=== PATIENT | male | born 1970 | race Caucasian/White ===

== ENCOUNTER 2023-03-27 04:12 | Day surgery (SDC) | payer OTHER ==
[2023-03-26 15:13] VITALS: BMI 31.3
[2023-03-27 11:10] VITALS: TEMP 98
[2023-03-27 11:51] VITALS: BP 123/86; PULSE 68; RESP 19
[2023-03-27 12:14] LABS: POTASSIUM 3.8 mmol/L (3.5-5.1)
[2023-03-27 12:15] LABS: CALCIUM 8.2 mg/dL (8.5-10.1)
[2023-03-27 12:16] LABS: BLOOD UREA NITROGEN 11.4 mg/dL (7-18); MAGNESIUM 2.2 mg/dL (1.8-2.4)
[2023-03-27 12:19] LABS: CREATININE 0.8 mg/dL (0.55-1.3)
== END 2023-03-27 12:22 | disposition home or self-care (01) ==
LOC: JASU-ENDO 04:12
PROVIDERS: ATTEND Internal Medicine Gastroenterology
PROC: 0DBL8ZX Excision of Transverse Colon, Via Natural or Artificial Opening Endoscopic, Diagnostic (ICD-10-PCS; 2023-03-27)
PROC: 0DBN8ZX Excision of Sigmoid Colon, Via Natural or Artificial Opening Endoscopic, Diagnostic (ICD-10-PCS; 2023-03-27)
PROC: 0DBH8ZX Excision of Cecum, Via Natural or Artificial Opening Endoscopic, Diagnostic (ICD-10-PCS; 2023-03-27)
PROC: 0DBK8ZX Excision of Ascending Colon, Via Natural or Artificial Opening Endoscopic, Diagnostic (ICD-10-PCS; principal; 2023-03-27 10:00)
DX: Z12.11 Encounter for screening for malignant neoplasm of colon (principal); K57.30 Diverticulosis of large intestine without perforation or abscess without bleeding; K64.8 Other hemorrhoids; D12.5 Benign neoplasm of sigmoid colon; D12.3 Benign neoplasm of transverse colon; D12.2 Benign neoplasm of ascending colon; D12.0 Benign neoplasm of cecum
CPT/HCPCS: 36415; 80048; 83735; 88305-TC

== ENCOUNTER 2023-07-15 14:02 | Emergency (ER) | payer OTHER ==
[2023-07-15] MEDS ORDERED: MECLIZINE HCL 25 MG TABLET (FP) PO ONE (14:20)
[2023-07-15 14:46] VITALS: TEMP 98.2; BMI 34.4
[2023-07-15] MEDS ORDERED: MECLIZINE HCL 25 MG TABLET (FP) ONE ×2 (15:11→20:08)
[2023-07-15] MEDS ORDERED: ONDANSETRON 4 MG/2 ML VIAL ONE (15:11)
[2023-07-15] MEDS: MECLIZINE HCL 25 MG TABLET (FP) PO ONE ×2 (15:12→20:12)
[2023-07-15] MEDS: ONDANSETRON 4 MG/2 ML VIAL IVPUSH ONE (15:12)
[2023-07-15] MEDS ORDERED: diazePAM 2 MG TABLET ONE (16:21)
[2023-07-15] MEDS: diazePAM 2 MG TABLET PO ONE (16:26)
[2023-07-15 16:27] LABS: INR 1.03 (0.83-1.09); PROTHROMBIN TIME (PATIENT) 11.7 SEC (9.7-13.0)
[2023-07-15 16:29] LABS: HEMATOCRIT 38.4 % (35.4-49); HEMOGLOBIN 12.7 G/dL (11.7-16.9); MCH 29.9 pg (25.7-33.7); MCHC 33.2 g/dl (32.0-35.9); MEAN CELL VOLUME 90.2 fl (80-96); MEAN PLT VOLUME 9.8 fl (7.5-11.1); PLATELET COUNT 164.6 10^3/uL (134-434); RBC 4.26 10^6/uL (4.00-5.60); RDW 13.1 % (11.9-15.9); WHITE BLOOD COUNT 11.3 10^3/uL (4.0-10.8)
[2023-07-15 16:30] LABS: ACTIVATED PTT 27.5 SECONDS (25.2-36.5)
[2023-07-15 16:37] LABS: BILIRUBIN,TOTAL 0.4 mg/dl (0.2-1); CALCIUM 8.3 mg/dl (8.5-10.1); CREATININE 0.8 mg/dl (0.6-1.3); MAGNESIUM 1.9 mg/dL (1.8-2.4); POTASSIUM 4.1 mmol/L (3.5-5.1); TOT PROT 6.3 g/dl (6.4-8.2)
[2023-07-15 16:59] LABS: PLATELET ESTIMATE ADEQUATE
[2023-07-15] MEDS ORDERED: ONDANSETRON 4 MG/2 ML VIAL IVPUSH ONE (18:21)
[2023-07-15 20:51] VITALS: RESP 16
[2023-07-16 01:24] VITALS: BP 117/62; PULSE 68
== END 2023-07-16 02:44 | disposition home or self-care (01) ==
LOC: FER 14:02
PROC: 3E033GC Introduction of Other Therapeutic Substance into Peripheral Vein, Percutaneous Approach (ICD-10-PCS; principal; 2023-07-16)
DX: R42 Dizziness and giddiness (principal); R53.1 Weakness; R11.0 Nausea; R51.9 Headache, unspecified
CPT/HCPCS: 36415; 70450-TC; 80053; 83735; 84484; 85027; 85610; 85730; 86850; 86900; 86901; 93005; 93010; 99285-25